=== PATIENT | female | born 1985 | race Caucasian/White ===

== ENCOUNTER 2017-11-17 20:18 | Emergency (ER) | payer MEDICAID, OTHER ==
[2017-11-17] MEDS: DIPHENHYDRAMINE 50 MG INJ IV (23:22)
[2017-11-17] MEDS: METOCLOPRAMIDE 10 MG INJ IV (23:22)
[2017-11-17] MEDS: ACETAMINOPHEN 325 MG TAB PO (23:22)
[2017-11-17] MEDS: SOD CHLORIDE 0.9% 1,000 ML IV (23:22)
[2017-11-18 00:34] LABS: ADD MAN DIFF? NO
[2017-11-18 00:38] LABS: BASOPHILS % 0.4 % (0.0-2.0); EOSINOPHILS # 0.5 10^3/ul (0.0-0.5); EOSINOPHILS % 4.2 % (0.0-7.0); HEMATOCRIT 37.3 % (37.0-47.0); HEMOGLOBIN 12.6 g/dl (12.0-16.0); LYMPHOCYTES # 3.2 10^3/ul (0.8-2.9); LYMPHOCYTES % 27.9 % (15.0-51.0); MEAN CORPUSCULAR HGB CONC 33.8 g/dl (32.0-37.0); MEAN CORPUSCULAR VOLUME 94.7 fl (82.0-101.0); MEAN PLATELET VOLUME 10.3 fl (7.4-10.4); MONOCYTE # 0.9 10^3/ul (0.3-0.9); MONOCYTES % 7.6 % (0.0-11.0); NEUTROPHIL # 6.7 10^3/ul (1.6-7.5); NEUTROPHILS % 59.5 % (39.0-77.0); PLATELET COUNT 278 10^3/UL (140-415); RED BLOOD COUNT 3.94 10^6/ul (4.20-5.40); RED CELL DISTRIBUTION WIDTH 12.9 % (11.5-14.5)
[2017-11-18 00:38] LABS: WHITE BLOOD COUNT 11.3 10^3/ul (4.8-10.8)
[2017-11-18 00:53] LABS: ADD UMIC NO; UR ASCORBIC ACID 20 mg/dL (NEGATIVE); UR BACTERIA FEW /HPF (NONE SEEN); UR BILIRUBIN (Dip) NEGATIVE (NEGATIVE); UR BLOOD (Dip) NEGATIVE (NEGATIVE); UR CLARITY SLIGHTLY CLOUDY (CLEAR); UR COLOR YELLOW (YELLOW); UR GLUCOSE (Dip) NEGATIVE (NEGATIVE); UR KETONES (Dip) NEGATIVE (NEGATIVE); UR LEUKOCYTE ESTERASE (Dip) NEGATIVE Leu/ul (NEGATIVE); UR NITRITE (Dip) NEGATIVE (NEGATIVE); UR RBC 0 /HPF (0-5); UR SPECIFIC GRAVITY (Dip) 1.021 (1.003-1.030); UR SQUAMOUS EPITHELIAL CELL FEW /HPF (FEW); UR TOTAL PROTEIN (Dip) NEGATIVE (NEGATIVE); UR UROBILINOGEN (Dip) NEGATIVE (NEGATIVE); UR WBC 2 /HPF (0-5)
[2017-11-18 00:55] LABS: ALANINE AMINOTRANSFERASE 44 IU/L (13-69); ALBUMIN 3.8 g/dl (3.3-4.9); ALBUMIN/GLOBULIN RATIO 1.35; ALKALINE PHOSPHATASE 61 IU/L (42-121); ANION GAP 12 (8-16); ASPARTATE AMINO TRANSFERASE 24 IU/L (15-46); BLOOD UREA NITROGEN 12 mg/dl (7-20); CALCIUM 9.1 mg/dl (8.4-10.2); CARBON DIOXIDE 25 mmol/L (21-31); CHLORIDE 102 mmol/L (97-110); CREATININE 0.53 mg/dl (0.44-1.00); GLUCOSE 87 mg/dl (70-220); POTASSIUM 3.6 mmol/L (3.5-5.1); SODIUM 135 mmol/L (135-144); TOTAL PROTEIN 6.6 g/dl (6.1-8.1)
== END 2017-11-18 01:36 | disposition home or self-care (01) ==
LOC: FTE 20:18
DX: O26.892 Other specified pregnancy related conditions, second trimester (principal); R10.2 Pelvic and perineal pain; Z3A.17 17 weeks gestation of pregnancy
CPT/HCPCS: 36415; 76805; 80053; 81001; 81003; 84702; 85025; 86900; 86901; 96374; 96375; 99285-25

== ENCOUNTER 2018-03-13 23:05 | Inpatient (IN) | payer OTHER ==
[2018-03-14] MEDS: LACTATED RINGER'S 1,000 ML IV ×4 (00:13→22:47)
[2018-03-14] MEDS: TERBUTALINE 1 MG/ML INJ SC ×3 (00:13→22:34)
[2018-03-14 01:16] LABS: ADD UMIC YES; UR ASCORBIC ACID 40 mg/dL (NEGATIVE); UR BACTERIA FEW /HPF (NONE SEEN); UR BILIRUBIN (Dip) NEGATIVE (NEGATIVE); UR BLOOD (Dip) NEGATIVE (NEGATIVE); UR CLARITY CLOUDY (CLEAR); UR COLOR YELLOW (YELLOW); UR GLUCOSE (Dip) NEGATIVE (NEGATIVE); UR KETONES (Dip) NEGATIVE (NEGATIVE); UR LEUKOCYTE ESTERASE (Dip) NEGATIVE Leu/ul (NEGATIVE); UR NITRITE (Dip) NEGATIVE (NEGATIVE); UR RBC 1 /HPF (0-5); UR SPECIFIC GRAVITY (Dip) 1.018 (1.003-1.030); UR SQUAMOUS EPITHELIAL CELL FEW /HPF (FEW); UR TOTAL PROTEIN (Dip) NEGATIVE (NEGATIVE); UR UROBILINOGEN (Dip) NEGATIVE (NEGATIVE); UR WBC 4 /HPF (0-5)
[2018-03-14 02:00] LABS: ADD MAN DIFF? NO
[2018-03-14] MEDS: MAGNESIUM SULFATE 4 GM/100 ML 100 ML IV (02:00)
[2018-03-14 02:03] LABS: BASOPHILS % 0.3 % (0.0-2.0); EOSINOPHILS # 0.5 10^3/ul (0.0-0.5); EOSINOPHILS % 3.7 % (0.0-7.0); HEMATOCRIT 38.6 % (37.0-47.0); LYMPHOCYTES % 23.8 % (15.0-51.0); MEAN CORPUSCULAR HEMOGLOBIN 32.3 pg (29.0-33.0); MEAN CORPUSCULAR HGB CONC 33.7 g/dl (32.0-37.0); MEAN CORPUSCULAR VOLUME 95.8 fl (82.0-101.0); MEAN PLATELET VOLUME 11.2 fl (7.4-10.4); MONOCYTES % 7.9 % (0.0-11.0); NEUTROPHILS % 63.5 % (39.0-77.0); PLATELET COUNT 283 10^3/UL (140-415); RED BLOOD COUNT 4.03 10^6/ul (4.20-5.40); RED CELL DISTRIBUTION WIDTH 12.8 % (11.5-14.5)
[2018-03-14 02:03] LABS: WHITE BLOOD COUNT 12.5 10^3/ul (4.8-10.8)
[2018-03-14] MEDS: BETAMET NA PHOS/AC(6 MG/ML) 5ML INJ IM (02:07)
[2018-03-14] MEDS: MAGNESIUM SULFATE 20 GM/500 ML 500 ML IV ×3 (02:26→19:40)
[2018-03-14 12:11] LABS: MAGNESIUM 5.3 mg/dl (1.7-2.5)
[2018-03-14 19:37] LABS: MAGNESIUM 5.9 mg/dl (1.7-2.5)
[2018-03-14] MEDS: ACETAMINOPHEN 325 MG TAB PO (19:58)
[2018-03-15] MEDS: BETAMET NA PHOS/AC(6 MG/ML) 5ML INJ IM (01:56)
[2018-03-15 02:04] LABS: MAGNESIUM 5.5 mg/dl (1.7-2.5)
[2018-03-15] MEDS: TERBUTALINE 1 MG/ML INJ SC ×3 (02:34→10:33)
[2018-03-15] MEDS: ACETAMINOPHEN 325 MG TAB PO (02:52)
[2018-03-15] MEDS: MAGNESIUM SULFATE 20 GM/500 ML 500 ML IV ×2 (05:35→15:25)
[2018-03-15] MEDS: AL HYDROX/MG HYDROX/SIMETH 30 ML CUP PO (09:12)
[2018-03-15] MEDS: LACTATED RINGER'S 1,000 ML IV (11:15)
[2018-03-15 12:54] LABS: MAGNESIUM 5.6 mg/dl (1.7-2.5)
[2018-03-15] MEDS: MEPERIDINE 50 MG INJ IV (15:47)
[2018-03-15 18:45] LABS: MAGNESIUM 5.7 mg/dl (1.7-2.5)
[2018-03-16] MEDS: LACTATED RINGER'S 1,000 ML IV (00:15)
[2018-03-16] MEDS: MAGNESIUM SULFATE 20 GM/500 ML 500 ML IV (00:18)
[2018-03-16 01:36] LABS: MAGNESIUM 5.6 mg/dl (1.7-2.5)
[2018-03-16] MEDS: AL HYDROX/MG HYDROX/SIMETH 30 ML CUP PO ×2 (05:15→13:16)
[2018-03-16 06:33] LABS: MAGNESIUM 5.1 mg/dl (1.7-2.5)
[2018-03-16] MEDS: FAMOTIDINE 20 MG INJ IV (09:47)
[2018-03-16] MEDS ORDERED: AL HYDROX/MG HYDROX/SIMETH 30 ML CUP PO (17:00)
[2018-03-16] MEDS: NIFEdipine 10 MG CAP PO ×2 (18:23→23:53)
[2018-03-16] MEDS: FAMOTIDINE 20 MG TAB PO (20:59)
[2018-03-16] MEDS: SENNA TAB PO (21:00)
[2018-03-17] MEDS: NIFEdipine 10 MG CAP PO ×2 (06:11→12:00)
[2018-03-17] MEDS: FAMOTIDINE 20 MG TAB PO (09:14)
[2018-03-17] MEDS: SENNA TAB PO (09:18)
[2018-03-17] MEDS: MAGNESIUM HYDROXIDE 30ML CUP PO (09:18)
== END 2018-03-17 17:25 | disposition home or self-care (01) | DRG 780 ==
LOC: OBT 23:05 → L-D 23:05 → PP1 03-14 08:06
PROVIDERS: Obstetrics & Gynecology
DX: O47.03 False labor before 37 completed weeks of gestation, third trimester (principal); Z3A.34 34 weeks gestation of pregnancy
CPT/HCPCS: 36415; 71046; 76816; 81001; 83735; 85025; 86850; 86900; 86901; 87086; 93970; 96360; 96372

== ENCOUNTER 2018-04-18 20:39 | Inpatient (IN) | payer OTHER ==
[2018-04-18 21:25] LABS: ADD UMIC YES; UR ASCORBIC ACID NEGATIVE (NEGATIVE); UR BACTERIA FEW /HPF (NONE SEEN); UR BILIRUBIN (Dip) NEGATIVE (NEGATIVE); UR BLOOD (Dip) NEGATIVE (NEGATIVE); UR CLARITY SLIGHTLY CLOUDY (CLEAR); UR COLOR YELLOW (YELLOW); UR GLUCOSE (Dip) NEGATIVE (NEGATIVE); UR KETONES (Dip) NEGATIVE (NEGATIVE); UR LEUKOCYTE ESTERASE (Dip) TRACE Leu/ul (NEGATIVE); UR MUCUS FEW /HPF (NONE SEEN); UR NITRITE (Dip) NEGATIVE (NEGATIVE); UR RBC 1 /HPF (0-5); UR SPECIFIC GRAVITY (Dip) 1.014 (1.003-1.030); UR SQUAMOUS EPITHELIAL CELL FEW /HPF (FEW); UR TOTAL PROTEIN (Dip) NEGATIVE (NEGATIVE); UR UROBILINOGEN (Dip) NEGATIVE (NEGATIVE); UR WBC 4 /HPF (0-5)
[2018-04-18] MEDS ORDERED: METHYLERGONOVINE 0.2 MG INJ IM (21:30)
[2018-04-18] MEDS ORDERED: CARBOPROST 250 MCG INJ IM (21:30)
[2018-04-18] MEDS ORDERED: OXYTOCIN 30 UNITS/LR 500 ML IV (21:30)
[2018-04-18] MEDS ORDERED: MISOPROSTOL 200 MCG TAB PR (21:30)
[2018-04-18] MEDS: LACTATED RINGER'S 1,000 ML IV ×2 (21:41→22:37)
[2018-04-18] MEDS: TERBUTALINE 1 MG/ML INJ SC ×2 (21:42→23:25)
[2018-04-18 22:12] LABS: ADD MAN DIFF? NO
[2018-04-18 22:15] LABS: BASOPHILS % 0.3 % (0.0-2.0); EOSINOPHILS # 0.3 10^3/ul (0.0-0.5); EOSINOPHILS % 2.5 % (0.0-7.0); HEMATOCRIT 40.2 % (37.0-47.0); HEMOGLOBIN 13.8 g/dl (12.0-16.0); LYMPHOCYTES # 2.6 10^3/ul (0.8-2.9); LYMPHOCYTES % 23.3 % (15.0-51.0); MEAN CORPUSCULAR HEMOGLOBIN 32.6 pg (29.0-33.0); MEAN CORPUSCULAR HGB CONC 34.3 g/dl (32.0-37.0); MEAN PLATELET VOLUME 10.7 fl (7.4-10.4); MONOCYTES % 8.7 % (0.0-11.0); NEUTROPHIL # 7.2 10^3/ul (1.6-7.5); NEUTROPHILS % 64.7 % (39.0-77.0); PLATELET COUNT 260 10^3/UL (140-415); RED BLOOD COUNT 4.23 10^6/ul (4.20-5.40); RED CELL DISTRIBUTION WIDTH 13.1 % (11.5-14.5)
[2018-04-18 22:15] LABS: WHITE BLOOD COUNT 11.1 10^3/ul (4.8-10.8)
[2018-04-18 22:35] LABS: INR 0.84; PROTIME 11.6 Sec (11.9-14.9); PT RATIO 0.9
[2018-04-18 22:36] LABS: PARTIAL THROMBOPLASTIN TIME 25.8 Sec (25.0-35.0)
[2018-04-18] MEDS ORDERED: LACTATED RINGER'S 1,000 ML IV (22:55)
[2018-04-18 23:07] LABS: HEPATITIS B SURFACE ANTIGEN NEGATIVE (NEGATIVE)
[2018-04-19] MEDS: LACTATED RINGER'S 1,000 ML IV ×3 (03:51→13:42)
[2018-04-19] MEDS: TERBUTALINE 1 MG/ML INJ SC (06:01)
[2018-04-19] MEDS: CITRIC ACID/SODIUM CITRATE 15 ML CUP PO (13:01)
[2018-04-19] MEDS: ONDANSETRON 4 MG INJ IV (13:41)
[2018-04-19] MEDS ORDERED: morphine SULFATE/PF (10 MG/10 ML) INJ (13:56)
[2018-04-19] MEDS ORDERED: FENTAnyl 50 MCG/ML VIAL (13:56)
[2018-04-19] MEDS ORDERED: OXYTOCIN 10 UNIT INJ (13:56)
[2018-04-19] MEDS ORDERED: METOCLOPRAMIDE 10 MG INJ (13:56)
[2018-04-19] MEDS ORDERED: BUPIVACAINE 0.75%/DEXT (SPINAL) 2 ML INJ (13:57)
[2018-04-19] MEDS ORDERED: PHENYLephrine (100 MCG/ML) 10ML SYG (14:31)
[2018-04-19] MEDS ORDERED: NALOXONE (0.4 MG/ML) INJ IV ×2 (15:00→21:00)
[2018-04-19] MEDS ORDERED: IPRATROPIUM (NEB) 0.5 MG/2.5 ML AMP HHN (15:00)
[2018-04-19] MEDS ORDERED: ONDANSETRON 4 MG INJ IV ×3 (15:00→21:00)
[2018-04-19] MEDS ORDERED: TRIMETHOBENZAMIDE 100 MG/ML VIAL IM ×2 (15:00)
[2018-04-19] MEDS ORDERED: OXYCODONE/ACETAMINOPHEN (5/325) TAB PO ×2 (15:00)
[2018-04-19] MEDS ORDERED: HYDROmorphONE 1 MG/5 ML IV SYRINGE IV ×3 (15:00)
[2018-04-19] MEDS ORDERED: MEPERIDINE 25 MG INJ IV (15:00)
[2018-04-19] MEDS ORDERED: EPHEDrine SULFATE 50 MG/5 ML SYG IV (15:00)
[2018-04-19] MEDS ORDERED: morphine 2 MG INJ IV ×2 (15:00)
[2018-04-19] MEDS ORDERED: ALBUTEROL 0.083% (NEB) 2.5 MG/3 ML AMP HHN (15:00)
[2018-04-19] MEDS ORDERED: NALBUPHINE HCL (10 MG/1 ML) INJ IV (15:00)
[2018-04-19] MEDS ORDERED: hydrALAzine 20 MG INJ IV (15:00)
[2018-04-19] MEDS ORDERED: DIPHENHYDRAMINE 50 MG INJ IV ×2 (15:00)
[2018-04-19] MEDS ORDERED: FENTAnyl 50 MCG/ML VIAL IV ×3 (15:00)
[2018-04-19] MEDS ORDERED: MIDAZOLAM 1 MG/ML 2 ML INJ IV (15:00)
[2018-04-19] MEDS ORDERED: LABETALOL HCL 20MG INJ IV (15:00)
[2018-04-19] MEDS: OXYTOCIN 30 UNITS/LR 500 ML IV (15:25)
[2018-04-19] MEDS: CEFAZOLIN 2 GM/50 ML (PMX) 50 ML IV (16:06)
[2018-04-19] MEDS: KETOROLAC 30 MG INJ IV ×2 (17:23→23:59)
[2018-04-19] MEDS ORDERED: MISOPROSTOL 200 MCG TAB PR (19:30)
[2018-04-19] MEDS ORDERED: BENZOCAINE 20% 56 ML SPRAY TOP (19:30)
[2018-04-19] MEDS ORDERED: CARBOPROST 250 MCG INJ IM (19:30)
[2018-04-19] MEDS ORDERED: WITCH HAZEL/GLYCERIN PAD PR (19:30)
[2018-04-19] MEDS ORDERED: METHYLERGONOVINE 0.2 MG INJ IM (19:30)
[2018-04-19] MEDS ORDERED: DIBUCAINE 1% 30 GM OINT PR (19:30)
[2018-04-19] MEDS ORDERED: ZOLPIDEM 5 MG TAB PO (19:30)
[2018-04-19] MEDS ORDERED: OXYTOCIN 30 UNITS/LR 500 ML IV (19:30)
[2018-04-19] MEDS: LACTATED RINGER'S 1,000 ML IV* (19:37)
[2018-04-19] MEDS ORDERED: MAGNESIUM HYDROXIDE 30ML CUP PO (21:00)
[2018-04-19] MEDS ORDERED: SENNA/DOCUSATE NA (8.6MG/50MG) TAB PO (21:00)
[2018-04-19 22:36] LABS: RAPID PLASMA REAGIN NONREACTIVE (NR)
[2018-04-20] MEDS ORDERED: IBUPROFEN 600 MG TAB PO
[2018-04-20] MEDS: LACTATED RINGER'S 1,000 ML IV* ×3 (03:50→19:24)
[2018-04-20] MEDS: KETOROLAC 30 MG INJ IV ×2 (06:10→12:00)
[2018-04-20 07:02] LABS: ADD MAN DIFF? NO
[2018-04-20 07:12] LABS: WHITE BLOOD COUNT 9.3 10^3/ul (4.8-10.8)
[2018-04-20 07:12] LABS: BASOPHILS % 0.2 % (0.0-2.0); EOSINOPHILS # 0.1 10^3/ul (0.0-0.5); EOSINOPHILS % 1.4 % (0.0-7.0); HEMATOCRIT 32.8 % (37.0-47.0); LYMPHOCYTES # 1.6 10^3/ul (0.8-2.9); LYMPHOCYTES % 16.7 % (15.0-51.0); MEAN CORPUSCULAR HEMOGLOBIN 32.9 pg (29.0-33.0); MEAN CORPUSCULAR HGB CONC 33.5 g/dl (32.0-37.0); MEAN CORPUSCULAR VOLUME 98.2 fl (82.0-101.0); MEAN PLATELET VOLUME 10.4 fl (7.4-10.4); MONOCYTE # 0.6 10^3/ul (0.3-0.9); MONOCYTES % 6.5 % (0.0-11.0); NEUTROPHILS % 74.7 % (39.0-77.0); PLATELET COUNT 197 10^3/UL (140-415); RED BLOOD COUNT 3.34 10^6/ul (4.20-5.40); RED CELL DISTRIBUTION WIDTH 13.3 % (11.5-14.5)
[2018-04-20] MEDS: LANOLIN 7 GM TUBE TOP (09:02)
[2018-04-20] MEDS: SENNA/DOCUSATE NA (8.6MG/50MG) TAB PO ×2 (09:03→21:33)
[2018-04-20] MEDS: MAGNESIUM HYDROXIDE 30ML CUP PO ×2 (09:03→21:33)
[2018-04-20] MEDS: DIPHENHYDRAMINE 50 MG INJ IV (09:40)
[2018-04-20] MEDS: BISACODYL 10 MG SUPP PR (12:00)
[2018-04-20] MEDS: HYDROCODONE/APAP (5/325) TAB PO ×2 (16:38→19:09)
[2018-04-20] MEDS: IBUPROFEN 600 MG TAB PO (17:32)
[2018-04-21] MEDS: IBUPROFEN 600 MG TAB PO ×4 (00:02→18:08)
[2018-04-21] MEDS: HYDROCODONE/APAP (5/325) TAB PO ×5 (01:11→21:27)
[2018-04-21] MEDS: SENNA/DOCUSATE NA (8.6MG/50MG) TAB PO ×2 (09:00→21:27)
[2018-04-21] MEDS: MAGNESIUM HYDROXIDE 30ML CUP PO ×2 (09:00→21:27)
[2018-04-21] MEDS: DIPHTH/TET/ACEL PERTUSS (ADULT) 0.5 ML VIAL IM* (09:12)
[2018-04-21] MEDS: MEASLES,MUMPS,RUBELLA VACCINE INJ SC* (09:13)
[2018-04-21] MEDS: VARICELLA VACCINE LIVE/PF 1,350 UNIT/0.5 ML ML SC* (09:13)
[2018-04-22] MEDS: IBUPROFEN 600 MG TAB PO ×4 (00:08→17:47)
[2018-04-22] MEDS: LANOLIN 7 GM TUBE TOP (00:22)
[2018-04-22] MEDS: HYDROCODONE/APAP (5/325) TAB PO (09:47)
[2018-04-22] MEDS: MAGNESIUM HYDROXIDE 30ML CUP PO (09:47)
[2018-04-22] MEDS: SENNA/DOCUSATE NA (8.6MG/50MG) TAB PO (09:47)
== END 2018-04-22 19:25 | disposition home or self-care (01) | DRG 766 ==
LOC: L-D 04-19 13:49 → OBT 20:39 → L-D 04-19 15:13 → OBT 21:14 → L-D 21:14 → PP1 04-19 20:01 → L-D 22:25
PROC: 10D00Z1 Extraction of Products of Conception, Low, Open Approach (ICD-10-PCS; principal; 2018-04-19 14:00)
DX: O34.211 Maternal care for low transverse scar from previous cesarean delivery (principal); Z3A.38 38 weeks gestation of pregnancy; Z37.0 Single live birth
CPT/HCPCS: 81001; 85025; 85610; 85730; 86592; 86850; 86900; 86901; 87086; 87340

== ENCOUNTER 2018-09-01 15:17 | Emergency (ER) | payer OTHER ==
[2018-09-01] MEDS: CYCLOBENZAPRINE 10 MG TAB PO (16:36)
[2018-09-01] MEDS: IBUPROFEN 600 MG TAB PO (16:36)
== END 2018-09-01 18:44 | disposition home or self-care (01) ==
LOC: FTE 15:17
DX: S30.1XXA Contusion of abdominal wall, initial encounter (principal); R40.2412 Glasgow coma scale score 13-15, at arrival to emergency department; F17.210 Nicotine dependence, cigarettes, uncomplicated; V49.50XA Passenger injured in collision with unspecified motor vehicles in traffic accident, initial encounter
CPT/HCPCS: 72040; 72072; 72110; 76705; 81025; 99284-25